=== PATIENT | female | born 1995 | race Hispanic/Latino ===

== ENCOUNTER 2023-10-18 20:53 | Emergency (ER) | payer BC, OTHER ==
[~2023-10-18] VITALS: Ht 157.5 cm; Wt 102.1 kg
[2023-10-18 20:58] VITALS: PULSE 86; RESP 17; TEMP 98.3
[2023-10-18] MEDS: ORPHENADRINE CITRATE 30 MG/ML VIAL IM ONE (21:11)
[2023-10-18] MEDS: KETOROLAC TROMETHAMINE 60 MG/2 ML VIAL IM ONE (21:12)
[2023-10-18] MEDS ORDERED: MEDROL4 M2 PO (21:52)
[2023-10-18] MEDS ORDERED: ORPHENADRINE C100 MG PO (21:52)
[2023-10-18 22:06] VITALS: BP 134/72; PULSE 82; RESP 17; TEMP 97.3; O2SAT 100
== END 2023-10-18 21:59 | disposition home or self-care (01) ==
LOC: ER 21:08
DX: S16.1XXA Strain of muscle, fascia and tendon at neck level, initial encounter (principal); S29.012A Strain of muscle and tendon of back wall of thorax, initial encounter
CPT/HCPCS: 99283; J1885; J2360

== ENCOUNTER 2023-12-27 22:15 | Emergency (ER) | payer OTHER ==
[~2023-12-27] VITALS: Ht 157.5 cm; Wt 102.1 kg
[~2023-12-27 22:15] MED LIST: MEDROL4 M2 PO; ORPHENADRINE C100 MG PO
[2023-12-27] MEDS: TETRACAINE HCL 0.5% OPTH SOLN 4 ML BTL OP ONE (22:43)
[2023-12-27] MEDS: FLUORESCEIN SOD(OPTH) 1 MG STRP OP ONE (22:44)
[2023-12-27] MEDS: TRAMADOL HCL 50 MG TAB PO STA (22:45)
[2023-12-27] MEDS ORDERED: AMOX TR-K CLV1 EAC1 PO (22:47)
[2023-12-27] MEDS ORDERED: POLYMYXIN B-TMP10 ML OD (22:47)
[2023-12-27] MEDS ORDERED: ACETAMINOPHEN-1 EAC4 PO (22:47)
[2023-12-27 23:46] LABS: BASOPHILS # (AUTO) 0.1 (0.0-0.1); BASOPHILS % 0.4 % (0.0-1.0); EOSINOPHILS # (AUTO) 0.1 (0.0-0.4); EOSINOPHILS % 0.6 % (0.0-6.0); HEMATOCRIT 44.7 % (34.2-44.1); HEMOGLOBIN 14.3 g/dL (12.0-16.0); LYMPHOCYTES # (AUTO) 2.2 (1.0-3.2); LYMPHOCYTES % 18.5 % (18.0-39.1); MEAN CORPUSCULAR HEMOGLOBIN 29.1 pg (28-32); MEAN CORPUSCULAR VOLUME 90.9 fL (81-99); MONOCYTES # (AUTO) 0.6 (0.2-0.8); MONOCYTES % 4.9 % (4.4-11.3); NEUTROPHILS # (AUTO) 8.8 (2.1-6.9); PLATELET COUNT 296 x10e3/uL (140-360); RED BLOOD COUNT 4.92 x10e6/uL (3.6-5.1); RED CELL DISTRIBUTION WIDTH 11.9 % (11.7-14.4)
[2023-12-28 00:01] LABS: ALBUMIN/GLOBULIN RATIO 1.2 (0.8-2.0); ANION GAP 12.7 mmol/L (8-16); BILIRUBIN,TOTAL 0.2 mg/dL (0.2-1.2); CALCIUM 9.7 mg/dL (8.4-10.2); CREATININE, SERUM 0.79 mg/dL (0.57-1.11); POTASSIUM 3.7 mmol/L (3.5-5.1); TOTAL PROTEIN 7.4 g/dL (6.5-8.1)
[2023-12-28] MEDS: KETOROLAC TROMETHAMINE 30 MG/ML VIAL IV STA (00:10)
[2023-12-28 00:31] VITALS: PULSE 96; RESP 17; TEMP 98.6
[2023-12-28] MEDS ORDERED: IOPAMIDOL 370 MG/ML 100 ML INFUS..BTL INJ ONE (01:22)
[2023-12-28 01:40] VITALS: BP 135/99; PULSE 86; RESP 19; TEMP 98.6; O2SAT 99
== END 2023-12-28 01:43 | disposition home or self-care (01) ==
LOC: ER 22:22
DX: H57.11 Ocular pain, right eye (principal); H10.9 Unspecified conjunctivitis
CPT/HCPCS: 36415; 70481; 80053; 84702; 85025; 99284; J1885; Q9967